=== PATIENT | male | born 1990 | race Caucasian/White ===

== ENCOUNTER 2017-03-23 22:40 | Emergency (ER) | payer SELFPAY ==
[~2017-03-23] VITALS: Ht 180.3 cm; Wt 69.5 kg
[2017-03-23 22:46] VITALS: Ht 180.3 cm; Wt 69.5 kg
[2017-03-24] MEDS ORDERED: DICY10CA60 PO (01:27)
[2017-03-24] MEDS ORDERED: ELEC100080 PO (01:27)
[2017-03-24] MEDS ORDERED: LOPE2CAP PO (01:29)
[2017-03-24] MEDS ORDERED: CIPR500T4 PO (01:29)
--- NOTE | 2017-03-24 01:38 | ERD ---
ER Documentation Chief Complaint Date/Time DATE: 03/24/17 TIME: 01:33 Chief Complaint diarrhea, abd pain x 3 days HPI This is a 26-year-old male presents to the emergency department today complaining of diarrhea for the past 2-3 days. Patient states that he initially started with headache and tactile fevers. States he has had some vomiting but that has resolved. States he is tried Pepto-Bismol. Denies any foreign travel, sick contacts. States he is concerned because he had a drink from [employer] and he heard "[employer] had fecal material in their drinks". States he is eating and drinking. ROS All systems reviewed and are negative except as per history of present illness. Medications Home Meds Active Scripts Ciprofloxacin Hcl* (Ciprofloxacin Hcl*) 500 Mg Tablet, 500 MG PO BID for 5 Days , TAB Prov:MARCELINA GARZA PA-C 03/24/17 Loperamide Hcl* (Imodium*) 2 Mg Capsule, 2 MG PO .AFTER EA LOOSE BM Y for DIARRHEA, #8 TAB Prov:MARCELINA GARZA PA-C 03/24/17 Electrolyte,Oral (Pedialyte) 1,000 Ml Solution, 100 ML PO Q6 Y for DIARRHEA, # 1000 ML Prov:MARCELINA GARZA PA-C 03/24/17 Dicyclomine Hcl* (Bentyl*) 10 Mg Capsule, 10 MG PO QID, #30 CAP Prov:MARCELINA GARZAC 03/24/17 Allergies Allergies: Coded Allergies: No Known Drug Allergies (Verified Allergy, Unknown, 03/23/17) Physical Exam Vitals Vital Signs Date Time Temp Pulse Resp B/P Pulse Ox O2 Delivery O2 Flow Rate FiO2 03/23/17 22:46 98.6 96 20 127/81 97 Physical Exam Const: Nontoxic-appearing Head: Atraumatic Eyes: Normal Conjunctiva ENT: Normal External Ears, Nose and Mouth. Neck: Full range of motion..~ No meningismus. Resp: Clear to auscultation bilaterally Cardio: Regular rate and rhythm, no murmurs Abd: Soft, mild periumbilical tenderness non distended. Normal bowel sounds. No right lower quadrant pain. No tenderness McBurney no left lower quadrant pain. Skin: No petechiae or rashes Back: No midline or flank tenderness Ext: No cyanosis, or edema Neur: Awake and alert Psych: Normal Mood and Affect Procedures/MDM Is a 26-year-old male who presents to the emergency department today for diarrhea for the past 2-3 days. Patient had indicated that he also had some tactile fevers and nausea and headaches. Patient is afebrile here in the emergency department. He is otherwise well- appearing. He did have some mild crampy abdominal pain on physical exam around his periumbilical region. He has no specific tenderness at McBurney's. I have low suspicion for acute surgical abdomen at this time. His symptoms at this time is consistent with diarrhea likely viral. Patient was concerned about a bacterial cause of the diarrhea however I have low suspicion for that. Patient was requesting antibiotics and I have agreed to give the patient a prescription for that but have instructed him not to take it unless he has no improvement in symptoms in the next 3-4 days. Patient denies any nausea currently and he indicated he is eating and drinking. Low suspicion for dehydration. His vital signs are stable. He is not tachycardic. Patient was given a prescription for Pedialyte, Bentyl, a very short course of Imodium and Cipro. He was instructed not to take the Cipro unless no improvement in symptoms in the next 3-4 days. Patient understood At this time the patient is stable for discharge and outpatient management. Patient should follow up with their PCP in the next 1-2 days. They may return to the emergency department sooner for any persistent or worsening of symptoms. Patient understood and agreed with the plan. Departure Diagnosis: Primary Impression: Diarrhea Diarrhea type: unspecified type Qualified Code: R19.7 - Diarrhea, unspecified type Condition: Fair Patient Instructions: Self-Care for Vomiting and Diarrhea Referrals: [facility] YOU HAVE RECEIVED A MEDICAL SCREENING EXAM AND THE RESULTS INDICATE THAT YOU DO NOT HAVE A CONDITION THAT REQUIRES URGENT TREATMENT IN THE EMERGENCY DEPARTMENT. FURTHER EVALUATION AND TREATMENT OF YOUR CONDITION CAN WAIT UNTIL YOU ARE SEEN IN YOUR DOCTORS OFFICE WITHIN THE NEXT 1-2 DAYS. IT IS YOUR RESPONSIBILITY TO MAKE AN APPOINTMENT FOR FOLOW-UP CARE. IF YOU HAVE A PRIMARY DOCTOR --you should call your primary doctor and schedule an appointment IF YOU DO NOT HAVE A PRIMARY DOCTOR YOU CAN CALL OUR PHYSICIAN REFERRAL HOTLINE AT IF YOU CAN NOT AFFORD TO SEE A PHYSICIAN YOU CAN CHOSE FROM THE FOLLOWING [facility] [address] [facility] [address] [facility] [address] [facility] [address] [facility] [facility] [address] [facility]. [facility] [address] Additional Instructions: Call your primary care doctor TOMORROW for an appointment during the next 1-2 days.See the doctor sooner or return here if your condition worsens before your appointment time. Take Imodium only as needed for diarrhea Take Bentyl as prescribed Take Pedialyte and stay well-hydrated Take antibiotic only if no improvement in 3-4 days MARCELINA GARZA PA-C Mar 24, 2017 01:37
[2017-03-24 01:51] VITALS: BP 128/77; PULSE 78; RESP 20; TEMP 98.6
== END 2017-03-24 01:51 | disposition home or self-care (01) ==
LOC: FTE 22:40
DX: R19.7 Diarrhea, unspecified (principal)
CPT/HCPCS: 99284